=== PATIENT | male | born 1935 | race Caucasian/White ===

== ENCOUNTER → 2018-01-02 | Outpatient (CLI) | payer MEDICARE, BC ==
--- NOTE | 2018-01-02 14:10 | Diagnostic Imaging Report ---
Bone Scan, delayed phase INDICATION: 82 M with prostate cancer COMPARISON: None REPORT: Approximately 3 hours following intravenous administration of 27 mCi of Tc-99m MDP, delayed total body images in the anterior and posterior projections and selected spot images were obtained. Mildly increased tracer is seen a the cervicothoracic junction. Focal moderate to markedly increased tracer is seen in T9 and L2. Otherwise, distribution of tracer activity is unremarkable throughout the skeletal system. No abnormal accumulation of tracer is seen in the soft tissues or urinary tract. IMPRESSION: 1. Acute osteoblastic processes in T9 and L2 are nonspecific and may represent post-traumatic changes versus bone metastases. Correlative imaging is advised. 2. Osteoblastic process at the cervicothoracic junction does not have the typical intensity of bone metastasis related to prostate cancer and is very likely degenerative. Signed by: Dr. Libertad Cooney M.D. on 01/02/2018 2:07 PM
== END ==
LOC: NM 09:02
PROVIDERS: ATTEND Radiology Radiation Oncology
DX: C61 Malignant neoplasm of prostate (principal)
CPT/HCPCS: 78306; A9503

== ENCOUNTER → 2022-05-01 | Outpatient (CLI) | payer MEDICARE, BC | LOC: SLEEP 19:34 | PROVIDERS: ATTEND Internal Medicine | DX: G47.33 Obstructive sleep apnea (adult) (pediatric) (principal); Z68.27 Body mass index [BMI] 27.0-27.9, adult; I10 Essential (primary) hypertension | CPT/HCPCS: 95810 ==